=== PATIENT | female | born 1975 | race Caucasian/White ===

== ENCOUNTER 2018-03-23 19:35 | Emergency (ER) | payer SELFPAY ==
[2018-03-23 19:56] VITALS: BP 122/84; PULSE 77; RESP 18; TEMP 98.1; O2SAT 99
--- NOTE | 2018-03-23 20:48 | C.PDOC ---
History Of Present Illness 42 y/o female with PMHx of sciatica, presents to the ED complaining of pain to the lower back radiating to left buttock and leg. Pain has been ongoing for the past 2 months, but worsened the last month. Patient states in the last week, pain is no longer improving with Motrin. Denies any fall or trauma. Denies any numbness, tingling, extremity weakness, dysuria, incontinence, fever, or chills. Time Seen by Provider: 03/23/18 20:00 Chief Complaint (Nursing): Back Pain History Per: Patient History/Exam Limitations: no limitations Onset/Duration Of Symptoms: Days Current Symptoms Are (Timing): Worse Previous Symptoms: Back Pain (sciatica) Associated Symptoms: None Past Medical History Reviewed: Historical Data, Nursing Documentation, Vital Signs Vital Signs: Last Vital Signs Temp 98.1 F 03/23/18 19:52 Pulse 77 03/23/18 19:52 Resp 18 03/23/18 19:52 BP 122/84 03/23/18 19:52 Pulse Ox 99 03/23/18 19:52 - Medical History PMH: Back Problems (Sciatica) - [facility] Procedures NAIL REMOVAL (08/31/13) TETANUS TOXOID ADMINIST (08/31/13) Family History: States: No Known Family Hx - Social History Hx Tobacco Use: Yes Hx Alcohol Use: Yes Hx Substance Use: No - Immunization History Hx Tetanus Toxoid Vaccination: Yes (08/31/2013) Hx Influenza Vaccination: No Hx Pneumococcal Vaccination: No Review Of Systems Except As Marked, All Systems Reviewed And Found Negative. Constitutional: Negative for: Fever, Chills Gastrointestinal: Negative for: Nausea, Vomiting, Abdominal Pain Genitourinary: Negative for: Dysuria, Frequency, Incontinence, Hematuria Musculoskeletal: Positive for: Back Pain, Leg Pain Neurological: Negative for: Weakness, Numbness, Incoordination Physical Exam - Physical Exam Appears: Non-toxic, No Acute Distress Skin: Normal Color, Warm, Dry Head: Atraumatic, Normacephalic Eye(s): bilateral: Normal Inspection Chest: Symmetrical Respiratory: Other (speaking in full sentences, no distress) Back: No Vertebral Tenderness, Paraspinal Tenderness (Left paralumbar tenderness), Straight Leg Raising (+ straight leg raise at 40 on the left) Extremity: Bilateral: Atraumatic, Normal Color And Temperature, Normal ROM (equal strength and sensation) Pulses: Left Dorsalis Pedis: Normal, Right Dorsalis Pedis: Normal Neurological/Psych: Oriented x3, Normal Speech Gait: Steady ED Course And Treatment O2 Sat by Pulse Oximetry: 99 (RA) Pulse Ox Interpretation: Normal Progress Note: Administered Flexeril PO and Toradol IM. On reassessment, patient reports improvement in pain and feels comfortable going home. She remains afebrile, AAOx3, in no acute distress. Educated regarding diagnosis and follow up instructions. Reassessment Condition: Improved Disposition Counseled Patient/Family Regarding: Diagnosis, Need For Followup, Rx Given - Disposition Referrals: [facility] [Outside] Disposition: HOME/ ROUTINE Disposition Time: 20:44 Condition: STABLE Additional Instructions: Take medications as directed- Nina las medicinas Sigue en clinica de [facility] general Return to ER if worse- Regresa si peor Prescriptions: Cyclobenzaprine [Cyclobenzaprine HCl] 10 mg PO HS #10 tab Naproxen [Naprosyn] 1 tab PO BID PRN #20 tab PRN Reason: Pain Instructions: Sciatica (DC) Forms: [employer] (Mauritian) Print Language: BERMUDIAN - POA Present On Arrival: None - Clinical Impression Clinical Impression: Sciatica - PA / [employer] / Resident Statement MD/DO has reviewed & agrees with the documentation as recorded. - Scribe Statement The provider has reviewed the documentation as recorded by the Scribe (Debbie Ellington) All medical record entries made by the Scribe were at my direction and personally dictated by me. I have reviewed the chart and agree that the record accurately reflects my personal performance of the history, physical exam, medical decision making, and the department course for this patient. I have also personally directed, reviewed, and agree with the discharge instructions and disposition.
== END 2018-03-23 21:02 | disposition home or self-care (01) ==
LOC: SUPCPDRO 19:35 → C.ER 19:35
DX: M54.32 Sciatica, left side (principal)
CPT/HCPCS: 96372; 99283; J1885

== ENCOUNTER 2018-03-31 12:05 | Emergency (ER) | payer OTHER ==
[2018-03-31 12:24] VITALS: BP 117/86; PULSE 90; RESP 18; TEMP 98.5; O2SAT 96
[2018-03-31] MEDS ORDERED: Dexamethasone 4 mg/1 ml IM STA (13:34)
[2018-03-31] MEDS ORDERED: Tramadol 25 mg PO STA (13:34)
[2018-03-31] MEDS ORDERED: Lidocaine 5% Patch TD STA (13:34)
[2018-03-31] MEDS ORDERED: Dexamethasone 4 mg/1 ml ONE (13:42)
[2018-03-31] MEDS ORDERED: Lidocaine 5% Patch TD ONE (13:42)
--- NOTE | 2018-03-31 13:59 | C.PDOC ---
History Of Present Illness 42 y/o female presents to ED with c/o left lower back pain radiating to leg for 2 weeks. Patient was seen at ED 1 week ago, given medication and reports no resolution of the symptoms. Pain is aggravated by movement, worse with walking and wearing the high heels she wears at work. Denies trauma, saddle anesthesia, bowel/bladder incontinence, abdominal pain, dysuria or any other complaints at this time. Time Seen by Provider: 03/31/18 13:00 Chief Complaint (Nursing): Back Pain History Per: Patient History/Exam Limitations: no limitations Onset/Duration Of Symptoms: Days Current Symptoms Are (Timing): Still Present Quality Of Discomfort: Cramping Past Medical History Reviewed: Historical Data, Nursing Documentation, Vital Signs Vital Signs: Last Vital Signs Temp 98.5 F 03/31/18 12:21 Pulse 90 03/31/18 12:21 Resp 18 03/31/18 12:21 BP 117/86 03/31/18 12:21 Pulse Ox 96 03/31/18 12:21 - Medical History PMH: Back Problems (Sciatica) Surgical History: No Surg Hx - [facility] Procedures NAIL REMOVAL (08/31/13) TETANUS TOXOID ADMINIST (08/31/13) Family History: States: No Known Family Hx - Social History Hx Tobacco Use: Yes Hx Alcohol Use: Yes Hx Substance Use: No - Immunization History Hx Tetanus Toxoid Vaccination: Yes (08/31/2013) Hx Influenza Vaccination: No Hx Pneumococcal Vaccination: No Review Of Systems Gastrointestinal: Negative for: Nausea, Vomiting, Abdominal Pain Genitourinary: Negative for: Dysuria, Hematuria Musculoskeletal: Positive for: Back Pain, Leg Pain Skin: Negative for: Rash Neurological: Negative for: Weakness, Numbness Physical Exam - Physical Exam Appears: Non-toxic, No Acute Distress, Other (pt is sitting with her legs up on significant others lap, no evidence of distress) Skin: Warm, Dry, No Rash Head: Atraumatic, Normacephalic Eye(s): bilateral: Normal Inspection, EOMI Nose: Normal Oral Mucosa: Moist Neck: Normal ROM, Supple Chest: Symmetrical Cardiovascular: Rhythm Regular Respiratory: Normal Breath Sounds, No Rales, No Rhonchi, No Wheezing Gastrointestinal/Abdominal: Soft, No Tenderness, No Guarding, No Rebound Back: No CVA Tenderness, No Vertebral Tenderness, Other (left parasacral/ buttock tenderness, no back tenderness, no rectal tenderness) Extremity: Normal ROM Neurological/Psych: Oriented x3, Normal Speech, Normal Motor, Normal Sensation Gait: Steady ED Course And Treatment O2 Sat by Pulse Oximetry: 96 (ra) Pulse Ox Interpretation: Normal Progress Note: Decadron, Lidoderm and Valium ordered. On reassessment, patient is resting comfortably, with improvement of back pain. Patient remains afebrile, with no bony tenderness, extremity numbness or weakness, or abdominal pain. Patient is ambulatory in the emergency department with no signs of discomfort. Patient was advised to follow up with physician/clinic in 1-2 days. Disposition - Disposition Referrals: [facility] [Outside] Disposition: HOME/ ROUTINE Disposition Time: 13:53 Condition: STABLE Additional Instructions: Vaya a short mdico o la clnica en 2-5 teran sin falta, para mas evaluacin. [place] los medicamentos carlo indicado. Volver a la jimbo de emergencia en cualquier momento si los sntomas persisten o empeoran. Prescriptions: Diazepam [Valium] 2 mg PO BID PRN #10 tablet PRN Reason: Muscle Spasm Lidocaine 5% [Lidoderm] 1 each TP DAILY PRN #1 patch PRN Reason: Pain, Mild (1-3) Meloxicam [Mobic] 15 mg PO DAILY #10 tab Instructions: Low Back Pain (DC) Forms: [employer] (Mohawk) Print Language: SPA - Clinical Impression Clinical Impression: Sciatica - PA / [facility] / Resident Statement MD/DO has reviewed & agrees with the documentation as recorded. - Scribe Statement The provider has reviewed the documentation as recorded by the Marsibgeno Meyers All medical record entries made by the Scribgeno were at my direction and personally dictated by me. I have reviewed the chart and agree that the record accurately reflects my personal performance of the history, physical exam, medical decision making, and the department course for this patient. I have also personally directed, reviewed, and agree with the discharge instructions and disposition.
== END 2018-03-31 14:31 | disposition home or self-care (01) ==
LOC: C.ER 12:05
DX: M54.30 Sciatica, unspecified side (principal)
CPT/HCPCS: 96372; 99283; J1100

== ENCOUNTER 2018-07-14 16:29 | Emergency (ER) | payer OTHER ==
--- NOTE | 2018-07-14 18:09 | RAD ---
HISTORY: cough COMPARISON: Chest x-ray performed 09/22/13 TECHNIQUE: Chest PA and lateral FINDINGS: LUNGS: No focal consolidation. Please note that chest x-ray has limited sensitivity for the detection of pulmonary masses. PLEURA: No significant pleural effusion identified. No definite pneumothorax . CARDIOVASCULAR: Heart size appears within normal limits. No atherosclerotic calcification present. OSSEOUS STRUCTURES: No acute osseous abnormality identified. VISUALIZED UPPER ABDOMEN: Unremarkable. OTHER FINDINGS: None. IMPRESSION: No focal consolidation.
--- NOTE | 2018-07-14 18:15 | C.PDOC ---
History Of Present Illness 43 year old female, with no significant past medical history, presents to the ED for evaluation of a mild cough, congestion, subjective fever and sore throat for the past two weeks. No difficulty swallowing, dysphonia, dysphagia or odynophagia. Patient also reports chills and diffuse body aches and leg pain, consistent with her previous sciatica pain. She reports exposure to family members who have been sick with the Flu. Patient denies headache, neck stiffness, back pain, enuresis, encopresis, or recent trauma/falls. Time Seen by Provider: 07/14/18 17:24 Chief Complaint (Nursing): Flu-like Symptoms History Per: Patient History/Exam Limitations: no limitations Onset/Duration Of Symptoms: Other (two weeks ) Current Symptoms Are (Timing): Still Present Sick Contacts (Context): Family Member(s) Associated Symptoms: Fever, Chills, Sore Throat, Cough, Nasal Congestion Ear Symptoms: Bilateral: None Additional History Per: Patient Past Medical History Reviewed: Historical Data, Nursing Documentation, Vital Signs Vital Signs: Last Vital Signs Temp 98.6 F 07/14/18 16:32 Pulse 92 H 07/14/18 16:32 Resp 18 07/14/18 16:32 BP 137/87 07/14/18 16:32 Pulse Ox 97 07/14/18 16:32 - Medical History PMH: Back Problems (Sciatica) Surgical History: No Surg Hx - [facility] Procedures NAIL REMOVAL (08/31/13) TETANUS TOXOID ADMINIST (08/31/13) Family History: States: Unknown Family Hx - Social History Hx Tobacco Use: Yes Hx Alcohol Use: Yes Hx Substance Use: No - Immunization History Hx Tetanus Toxoid Vaccination: Yes (08/31/2013) Hx Influenza Vaccination: No Hx Pneumococcal Vaccination: No Review Of Systems Constitutional: Positive for: Fever, Chills Eyes: Negative for: Pain, Vision Change ENT: Positive for: Nose Congestion. Negative for: Ear Pain, Nose Pain, Nose Discharge, Mouth Pain, Mouth Swelling, Throat Swelling Cardiovascular: Negative for: Chest Pain, Palpitations, Orthopnea, Edema, Light Headedness Respiratory: Positive for: Cough. Negative for: Shortness of Breath, SOB with Excertion, Pleuritic Pain Gastrointestinal: Negative for: Nausea, Vomiting, Abdominal Pain Genitourinary: Negative for: Dysuria, Frequency, Hematuria, Vaginal Discharge Musculoskeletal: Positive for: Other (generalized body aches ). Negative for: Neck Pain, Shoulder Pain Neurological: Negative for: Weakness, Numbness, Incoordination, Confusion, Seizures Psych: Negative for: Anxiety, Depression, Suicidal ideation Physical Exam - Physical Exam Appears: Non-toxic, No Acute Distress Skin: Normal Color, Warm, Dry Head: Atraumatic, Normacephalic Eye(s): bilateral: Normal Inspection, PERRL, EOMI Ear(s): Bilateral: Normal Nose: Normal, No Discharge Oral Mucosa: Moist Throat: Normal, No Erythema, No Exudate Neck: Supple, Other (no meningeal signs) Chest: Symmetrical, No Deformity, No Tenderness Cardiovascular: Rhythm Regular, No Murmur Respiratory: Normal Breath Sounds, No Rales, No Rhonchi, No Wheezing Gastrointestinal/Abdominal: Normal Exam, Soft, No Tenderness Back: Normal Inspection, No CVA Tenderness, No Vertebral Tenderness Extremity: Normal ROM, Capillary Refill (less than 2 seconds ) Extremity: Bilateral: Atraumatic Neurological/Psych: Oriented x3, Normal Speech, Normal Cognition, No Cerebellar Signs ED Course And Treatment O2 Sat by Pulse Oximetry: 97 (on RA) Pulse Ox Interpretation: Normal Medical Decision Making Medical Decision Makin43 year old female p/w flu like symptoms after exposure to family with similiar. Lungs CTA b/l. Throat non-erythematous, without hot potatoe voice. uvula midline. Differential diagnoses include but are not limited to: Influenza vs. Strep Throat Plan: * CXR * Flu swab * Rapid Strep * Motrin PO * reassess and disposition Progress: CXR ordered and reviewed. Flu swab and rapid strep test ordered. Motrin PO given. Flu and rapid strep negative CXR negative likely viral uri / flu will rx with tamiflu pt agreeable to plan given return indications and will f/u outpt Disposition - Disposition Referrals: [facility] [Outside] [facility] [Outside] [facility] [Outside] Disposition: HOME/ ROUTINE Disposition Time: 18:16 Condition: GOOD Prescriptions: Oseltamivir Cap [Tamiflu] 75 mg PO BID 5 Days #10 cap Instructions: Flu, Adult (DC), Viral Upper Respiratory Infection, Adult (DC) Forms: [employer] (Lithuanian) - Clinical Impression Clinical Impression: Influenza - Scribe Statement The provider has reviewed the documentation as recorded by the Scribe (Jaquelin Henry) Provider Attestation: All medical record entries made by the Scribe were at my direction and personally dictated by me. I have reviewed the chart and agree that the record accurately reflects my personal performance of the history, physical exam, medical decision making, and the department course for this patient. I have also personally directed, reviewed, and agree with the discharge instructions and disposition.
[2018-07-14 18:27] VITALS: BP 121/76; PULSE 88; RESP 20; TEMP 98.7
[2018-07-14 18:29] VITALS: O2SAT 97
== END 2018-07-14 18:27 | disposition home or self-care (01) ==
LOC: C.ER 16:29
DX: J11.1 Influenza due to unidentified influenza virus with other respiratory manifestations (principal)